=== PATIENT | female | born 1985 | race Caucasian/White ===

== ENCOUNTER 2021-01-13 14:34 | Emergency (ER) | payer OTHER ==
[~2021-01-13] VITALS: Ht 149.9 cm; Wt 52.2 kg
== END 2021-01-13 18:30 | disposition home or self-care (01) ==
LOC: ED 14:34
DX: S06.0X0A Concussion without loss of consciousness, initial encounter (principal); S00.03XA Contusion of scalp, initial encounter; W20.8XXA Other cause of strike by thrown, projected or falling object, initial encounter; Y99.0 Civilian activity done for income or pay
CPT/HCPCS: 99283